=== PATIENT | female | born 1980 | race Caucasian/White ===

== ENCOUNTER 2018-08-03 13:21 | Emergency (ER) | payer SELFPAY ==
[2018-08-03] MEDS ORDERED: Acetaminophen 325 MG TAB ONE (13:42)
[2018-08-03] MEDS ORDERED: Sodium Chloride 0.9% 1,000 ML ONE (13:42)
[2018-08-03] MEDS ORDERED: Acetaminophen 325 MG Suppository ONE (13:42)
[2018-08-03] MEDS ORDERED: Albuterol Sulfate 2.5 mg/3 ml Neb ONE (13:53)
--- NOTE | 2018-08-03 13:56 | RAD ---
EXAM: Chest 2 views: HISTORY: Fever COMPARISON: None. FINDINGS: There is a normal-sized cardiomediastinal silhouette. There is no evidence of consolidation, mass, or pleural effusion. The bones are unremarkable. IMPRESSION: No evidence of acute cardiopulmonary disease
[2018-08-03 14:09] LABS: ALT (SGPT) 119 U/L (8-55); AST (SGOT) 76 U/L (5-34); Alkaline Phosphatase 115 U/L (40-150); Anion Gap 18 mmol/L (10-20); BUN (Urea Nitrogen) 6 mg/dL (7.0-18.7); Bilirubin, Total 0.7 mg/dL (0.2-1.2); Calc. Creatinine Clearance 0 mL/min (70-130); Calcium 9.9 mg/dL (7.8-10.44); Carbon Dioxide 20 mmol/L (22-29); Chloride 98 mmol/L (98-107); Estimated GFR-MDRD 75; Globulin 3.7 g/dL (2.4-3.5); Glucose 193 mg/dL (70-105); Potassium 4.1 mmol/L (3.5-5.1); Protein, Total 7.7 g/dL (6.0-8.3); Sodium 132 mmol/L (136-145)
[2018-08-03 14:18] LABS: Band 10 % (5-11); Hemoglobin 11.9 g/dL (12.0-16.0); Lymphocytes 9 % (21-51); MDiff Complete? YES; Mean Corpuscular HGB CONC 31.8 g/dL (32.0-36.0); Mean Corpuscular Hemoglobin 27.5 pg (27.0-31.0); Mean Corpuscular Volume 86.6 fL (78.0-98.0); Mean Platelet Volume 8.4 fL (7.4-10.4); Monocytes 8 % (0-10); Neutrophil 73 % (42-75); Platelet Count 258 thou/uL (130-400); Polychromasia SLIGHT = 2-3 cells (100X) (0-2/hpf); RBC Distribution Width 12.4 % (11.5-14.5); Red Blood Cell (RBC) Count 4.32 mill/uL (4.20-5.40); White Blood Cell (WBC) Count 7.9 thou/uL (4.8-10.8)
== END 2018-08-03 15:10 | disposition home or self-care (01) ==
LOC: NAV ERS 13:21
DX: J20.9 Acute bronchitis, unspecified (principal); J06.9 Acute upper respiratory infection, unspecified; F41.9 Anxiety disorder, unspecified; F32.9 Major depressive disorder, single episode, unspecified; F20.9 Schizophrenia, unspecified; E11.9 Type 2 diabetes mellitus without complications; F17.290 Nicotine dependence, other tobacco product, uncomplicated; Z79.899 Other long term (current) drug therapy; Z79.84 Long term (current) use of oral hypoglycemic drugs
CPT/HCPCS: 36416; 71046; 80053; 83605; 85025; 87804; 93005; 94640; 96360; J7050; J7611